=== PATIENT | female | born 1965 | race Caucasian/White ===

== ENCOUNTER 2019-06-25 16:27 | Emergency (ER) | payer MEDICAID ==
[2019-06-25 16:35] VITALS: BP 125/88
--- NOTE | 2019-06-25 17:00 | ED Physician Documentation ---
History of Present Illness - Stated complaint Stated Complaint: L SHOULDER INJ/FEM - Chief complaint Chief Complaint: General - History obtained from History obtained from: Patient, Family - History of Present Illness Pain level max: 4 Pain level now: 2 - Additonal information Additional information: 53-year-old female presents to the emergency department stating that she has vaginal swelling, itching and stinging pain. Has never had this before. Has been with a new sexual partner for about 4 months. She also states that her l eft shoulder has been hurting since carrying a heavy box 3 days ago. She took Motrin prior to arrival and now the pain feels better. Worse with movement and better with rest. Review of Systems Constitutional: denies: Fever, Chills Respiratory: denies: Cough GI: denies: Vomiting, Diarrhea : denies: Now EGA Skin: denies: Rash PD PAST MEDICAL HISTORY - Past Medical History Past Medical History: No - Past Surgical History Past Surgical History: No - Present Medications Home Medications: Ambulatory Orders Medication Instructions Recorded Confirmed Valacyclovir HCl [Valacyclovir] 1,000 mg PO DAILY #5 tablet 06/25/19 - Allergies Allergies/Adverse Reactions: Allergies Allergy/AdvReac Type Severity Reaction Status Date / Time No Known Drug Allergies Allergy Verified 06/25/19 16:32 PD ED PE NORMAL - Vitals Vital signs reviewed: Yes - General General: Alert and oriented X 3, No acute distress - HEENT HEENT: Moist mucous membranes - Neck Neck: Supple, no meningeal sign - Cardiac Cardiac: RRR - Respiratory Respiratory: No respiratory distress, Clear bilaterally - Abdomen Abdomen: Soft, Non tender, Non distended - Female Female : [employer] present (Ana Maria ROLLINS), Other (External exam performed, several small superficial ulcerations to the labia.) - Derm Derm: Warm and dry - Extremities Extremities: Other (Left shoulder - Full range of motion without pain. No pain with internal and external rotation. No pain with abduction or abduction. Is able to lift and move the arm without any difficulty. Neurovascular intact including the axillary nerve.) - Neuro Neuro: Alert and oriented X 3 - Psych Psych: Normal mood, Normal affect Results - Vitals Vitals: Vital Signs - 24 hr 06/25/19 16:33 Temperature 36.2 C L Heart Rate 92 Respiratory 18 Rate Blood Pressure 125/88 H O2 Saturation 98 Oxygen O2 Source Room air - Labs Labs: Microbiology 06/25/19 16:55 Wet Prep - Final Genital - Vaginal PD MEDICAL DECISION MAKING - ED course Complexity details: considered differential, d/w patient ED course: Symptoms and exam are concerning for a herpes outbreak. Will treat with Valtrex. Shoulder does not need any intervention at this time. Her symptoms seem to have resolved with the Motrin she took. HSV testing was sent. Patient counseled regarding signs and symptoms for which I believe and urgent re- evaluation would be necessary. Patient with good understanding of and agreement to plan and is comfortable going home at this time This document was made in part using voice recognition software. While efforts are made to proofread this document, sound alike and grammatical errors may occur. 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 Return if you worsen. Testing was done to confirm herpes simplex. This will be done in a few days and you will be called if it is positive. Discharge Date/Time: 06/25/19 17:34
[2019-06-28 03:04] LABS: SOURCE SWAB
== END 2019-06-25 17:34 | disposition home or self-care (01) ==
LOC: ED 16:27
DX: S46.912A Strain of unspecified muscle, fascia and tendon at shoulder and upper arm level, left arm, initial encounter (principal); X50.0XXA Overexertion from strenuous movement or load, initial encounter; Y93.89 Activity, other specified; A60.04 Herpesviral vulvovaginitis; N76.5 Ulceration of vagina
CPT/HCPCS: 86695; 86696; 87210; 87491; 87529; 87591; 87661; 99283; 99284

== ENCOUNTER 2019-07-03 05:14 | Emergency (ER) | payer MEDICAID ==
[2019-07-03 05:25] VITALS: BP 112/78
--- NOTE | 2019-07-03 05:57 | ED Physician Documentation ---
History of Present Illness - Stated complaint Stated Complaint: LEFT HAND INJURY - Chief complaint Chief Complaint: Wound - History obtained from History obtained from: Patient - History of Present Illness Timing: How many days ago (2) Pain level now: 3 Improved by: signficant improvement when she expressed pus Worsened by: movement, palpation - Additonal information Additional information: Patient complains of pain in left second finger with swelling. She sustained a laceration to the same area two days ago with a knife. She close the laceration herself using crazy glue. Since then, the area has become increasingly swollen and painful. Earlier today, she was able to express pass from the wound, resulting in decreased swelling and pain. Review of Systems Musculoskeletal: reports: Extremity pain, Extremity swelling Neurologic: denies: Focal weakness, Numbness PD PAST MEDICAL HISTORY - Past Medical History Past Medical History: Yes Other Past Medical History: HSV2 - Past Surgical History Past Surgical History: No - Present Medications Home Medications: Ambulatory Orders Medication Instructions Recorded Confirmed Valacyclovir HCl [Valacyclovir] 1,000 mg PO DAILY #5 tablet 06/25/19 Cephalexin [Keflex] 500 mg PO Q6H #28 capsule 07/03/19 Sulfamethox/Trimeth 800/160 1 each PO BID #14 tablet 07/03/19 [Bactrim Ds 800/160] - Allergies Allergies/Adverse Reactions: Allergies Allergy/AdvReac Type Severity Reaction Status Date / Time No Known Drug Allergies Allergy Verified 07/03/19 05:25 PD ED PE NORMAL - Vitals Vital signs reviewed: Yes - General General: Alert and oriented X 3, No acute distress, Well developed/nourished PD ED PE EXPANDED - Extremities Extremities: Motor intact (left finger FROM extension and flexion including with isolated Dip, pip, mcp), Sensory intact (LTS intact left 2nd fingertip) VICTOR MANUEL UE/Hands Visual: 1 - rash (confluent, sharply-marginated erythema that is tender but not flucutant. there is a 1cm lac on lateral ascpet over the distal phalanx that has been closed with adhesive, no discharge), swelling, tenderness Results - Vitals Vitals: Oxygen O2 Source Room air PD MEDICAL DECISION MAKING - ED course Complexity details: considered differential, d/w patient Departure - Departure Disposition: 01 Home, Self Care Clinical Impression: Finger infection Condition: Good Instructions: ED Infec Skin Cellulitis Prescriptions: Cephalexin [Keflex] 500 mg PO Q6H #28 capsule Sulfamethox/Trimeth 800/160 [Bactrim Ds 800/160] 1 each PO BID #14 tablet Discharge Date/Time: 07/03/19 06:53
[2019-07-03] MEDS ORDERED: cephALEXin 250 MG CAPSULE PO STA (06:34)
[2019-07-03] MEDS ORDERED: SULFAMETH/TRIMETH DS 800/160 MG TABLET PO STA (06:46)
== END 2019-07-03 06:53 | disposition home or self-care (01) ==
LOC: ED 05:14
DX: L08.9 Local infection of the skin and subcutaneous tissue, unspecified (principal); S61.211A Laceration without foreign body of left index finger without damage to nail, initial encounter; W26.0XXA Contact with knife, initial encounter
CPT/HCPCS: 99282; 99283; A9270